=== PATIENT | female | born 1965 | race Caucasian/White ===

== ENCOUNTER 2018-01-04 15:52 | Emergency (ER) | payer MEDICAID, SELFPAY ==
[2018-01-04 15:53] VITALS: BP 152/81; PULSE 76; RESP 16; TEMP 37.1; O2SAT 97; BMI 26.9
--- NOTE | 2018-01-04 16:20 | ED.VISSUMM ---
- ER Visit Summary Date of Service: 01/04/18 Chief Complaint: Suicidal ideation History of Present Illness: The patient is a 52 F presenting with suicidal ideation. Patient states that she was seen by the counseling center today and sent over for suicidal ideation. She states she has had thoughts of hanging herself. She has a history of depression and bipolar. No history of past suicide attempts. She states she feels overwhelmed. Denies alcohol or drug use. Physical Examination: Vitals are stable. Patient is afebrile. Alert no acute distress. HEENT exam is unremarkable. Neck is supple. Lungs are clear and equal bilaterally. Heart is regular rate and rhythm. Abdomen is soft nontender nondistended. Extremities are unremarkable. Skin is warm and dry. No focal neurologic deficit. Tearful, suicidal ideation Remainder of exam is unremarkable. Emergency Department Course and Treatment: CBC normal except platelets 107. Chemistries unremarkable. Alcohol is negative. Tox positive for opiates. Discussed with the counseling center for evaluation. Disposition: per counseling center Impression: Suicidal ideation This note was generated with [employer] dictation software. It may contain incorrect words, spelling, and punctuation that were not noted in review of the chart prior to signing ED Disposition - Plan for ED Patient: Chief Complaint: Suicidal Referrals: Yinka Dutton DO [Primary Care Provider] -
[2018-01-04 16:39] LABS: Absolute Lymphocyte Count 2.64 X10^3/ul (0.83-4.51); Absolute Neutrophil Count 4.6 X10^3/uL (2.0-7.7); Basophil# 0.03 X10^3/uL; Basophil% 0.4 % (0-1); Eosinophil# 0.26 X10^3/uL; Eosinophils% 3.1 % (0-5); Hematocrit 39.3 % (37-47); Hemoglobin 13.5 g/dl (12.0-15.0); Lymphocyte # 2.64 X10^3/ul (4.0); Lymphocyte % 31.4 % (19-41); Mean Corp Hgb Conc 34.4 g/gl (32-36); Mean Corpuscular Hgb 32.5 pg (27.0-32.0); Mean Corpuscular Volume 94.7 fL (81-99); Mean Platelet Vol. 9.4 fl (6.2-12.0); Monocyte# 0.79 X10^3/uL; Monocyte% 9.4 % (0-10); Neutrophil # 4.63 X10^3/uL (2.7-7.7); Neutrophil % 55.1 % (47-70); Platelet Count 107 K/mm3 (150-450); RBC Distribution Width CV 13.5 % (11.6-14.6); RBC Distribution Width SD 44.8 fl (35.1-43.9); Red Blood Count 4.15 M/mm3 (4.2-5.4); White Blood Count 8.4 K/mm3 (4.4-11.0)
[2018-01-04 16:41] LABS: POSITIVE COUNT NO; POSITIVE DIFFERENTIAL NO; POSITIVE MORPHOLOGY NO
[2018-01-04 16:56] LABS: Anion Gap 9 (5-15); BUN 10 mg/dL (7-18); BUN/Creat Ratio 13.1 RATIO (10-20); Calcium,Total 8.5 mg/dL (8.5-10.1); Chloride 103 mmol/L (98-107); Creatinine, Serum 0.77 mg/dL (0.55-1.02); EST Glomerular Filtration Rate 84 mL/min (>60); Est Glom Filt Rate - Afr Amer 101 mL/min (>60); Estimated Creatinine Clearance 84.25 ml/min; Glucose 104 mg/dL (74-106); Potassium 4.6 mmol/L (3.5-5.1); Sodium Level 132 mmol/L (136-145)
[2018-01-04 17:11] VITALS: RESP 16
[2018-01-04] MEDS: Acetaminophen 500 MG Tablet 1000 MG PO (17:21)
[2018-01-04 18:49] LABS: Amphetamine Urine VISTA NEGATIVE (<1000 ng/mL); Barbiturate Urine VISTA NEGATIVE (< 200 ng/mL); Benzodiazepine Urine VISTA NEGATIVE (< 200 ng/mL); Cocaine Urine VISTA NEGATIVE (< 300 ng/mL); Ecstacy Urine VISTA NEGATIVE (< 500 ng/mL); Methadone Urine VISTA NEGATIVE (< 300 ng/mL); PCP Urine VISTA NEGATIVE (< 25 ng/mL); THC Urine VISTA NEGATIVE (< 50 ng/mL); Vista UDS pH Range 6
[2018-01-04 19:00] VITALS: BP 121/86; PULSE 78; RESP 14; O2SAT 98
[2018-01-04 22:21] VITALS: BP 107/54; PULSE 67; RESP 16; O2SAT 95
--- NOTE | 2018-01-04 22:22 | ED.RN ---
CALLED [facility] [place], [place] AND THEY CANNOT TRANSFER PATIENT. CALLED [facility] AND THEY CANNOT TRANSFER THE PATIENT UNTIL 8 IN THE MORNING.
--- NOTE | 2018-01-04 22:27 | ED.RN ---
ATTEMPTED TO CALL REPORT TO [facility], NOT ANSWER.
[2018-01-05] VITALS: RESP 16
[2018-01-05] MEDS: traZODone 50 MG Tablet PO (01:11)
[2018-01-05] MEDS: Gabapentin 600 MG Tablet PO ×2 (01:11→08:35)
[2018-01-05] MEDS: Isosorbide Mononitrate 30 MG Tablet PO (01:11)
[2018-01-05] MEDS: LORazepam 0.5 MG Tablet PO (01:11)
[2018-01-05] MEDS: tiZANidine HCl 2 MG Tablet 4 MG PO ×2 (01:11→08:34)
[2018-01-05] MEDS: morphine SR 15 MG Tablet PO (01:19)
[2018-01-05 02:00] VITALS: RESP 16
--- NOTE | 2018-01-05 02:13 | ED.RN ---
ATTEMPTED 2ND TIME TO GIVE REPORT, NO ANSWER.
[2018-01-05 04:55] VITALS: BP 119/75; PULSE 70; RESP 16; O2SAT 93
--- NOTE | 2018-01-05 05:04 | ED.RN ---
ATTEMPTED 3RD TIME TO GIVE REPORT TO [facility]. ALLOWED PHONE TO RING FOR 10 MINS BEFORE HANGING UP. WILL TRY LATER.
[2018-01-05 05:59] VITALS: RESP 16
[2018-01-05 06:31] VITALS: BP 119/75; PULSE 70; RESP 16; TEMP 37.1; O2SAT 93
--- NOTE | 2018-01-05 07:31 | NURSING ---
CALLED [facility] FOR TRANSPORT. REFUSED. CALLED [facility] FOR TRANSPORT. ETA IS 45 MIN
[2018-01-05] MEDS: Venlafaxine XR 75 MG Capsule 375 MG PO (08:34)
[2018-01-05] MEDS: Metoprolol(XL)Succ 100 MG Tablet PO (08:34)
[2018-01-05] MEDS: lamoTRIgine 100 MG Tablet 200 MG PO (08:35)
[2018-01-05] MEDS: Aspirin 81 MG TAB.CHEW PO (08:39)
== END 2018-01-05 08:46 ==
PROVIDERS: Emergency Provider Emergency Medicine; Family Provider Student in an Organized Health Care Education/Training Program; PCP Student in an Organized Health Care Education/Training Program
DX: R45.851 Suicidal ideations (principal); F32.9 Major depressive disorder, single episode, unspecified; F31.9 Bipolar disorder, unspecified; I25.10 Atherosclerotic heart disease of native coronary artery without angina pectoris; J44.9 Chronic obstructive pulmonary disease, unspecified; K21.9 Gastro-esophageal reflux disease without esophagitis; I10 Essential (primary) hypertension; D64.9 Anemia, unspecified; Z91.5 Personal history of self-harm; Z79.82 Long term (current) use of aspirin; Z79.899 Other long term (current) drug therapy; Z72.0 Tobacco use
CPT/HCPCS: 80048; 80307; 80320; 85025; 99285; G0480

== ENCOUNTER 2018-03-04 15:32 | Emergency (ER) | payer MEDICAID, SELFPAY ==
[2018-03-04 15:34] VITALS: BP 155/101; PULSE 74; RESP 16; TEMP 36.1; O2SAT 97; BMI 27.2
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
[2018-03-04] MEDS: Clindamycin HCl 150 MG Capsule 300 MG PO (16:28)
[2018-03-04] MEDS: morphine 8 MG/ML Syringe SC (16:28)
[2018-03-04 16:34] VITALS: BP 155/90; PULSE 74; RESP 17; O2SAT 99
== END 2018-03-04 17:09 | disposition home or self-care (01) ==
PROVIDERS: Emergency Provider Emergency Medicine; Family Provider Student in an Organized Health Care Education/Training Program; PCP Student in an Organized Health Care Education/Training Program
DX: K04.7 Periapical abscess without sinus (principal); M54.5 Low back pain; G89.29 Other chronic pain; J44.9 Chronic obstructive pulmonary disease, unspecified; D64.9 Anemia, unspecified; I25.10 Atherosclerotic heart disease of native coronary artery without angina pectoris; F32.9 Major depressive disorder, single episode, unspecified; E78.5 Hyperlipidemia, unspecified; K21.9 Gastro-esophageal reflux disease without esophagitis; I10 Essential (primary) hypertension; Z95.5 Presence of coronary angioplasty implant and graft; Z98.818 Other dental procedure status; Z79.82 Long term (current) use of aspirin; Z79.899 Other long term (current) drug therapy; F17.200 Nicotine dependence, unspecified, uncomplicated
CPT/HCPCS: 96372; 99283